=== PATIENT | female | born 1965 | race Caucasian/White ===

== ENCOUNTER → 2020-03-15 | Day surgery (SDC) | payer BC ==
[~2020-03-15] VITALS: Ht 157.4 cm; Wt 66.2 kg
[~2020-03-15] MED LIST: EFFEXOR XR150 M1 PO; PROTONIX40 MG PO; Synthroid,Lev100 MCG PO
[2020-03-15 07:16] VITALS: BP 119/57
[2020-03-15 08:38] VITALS: BP 104/40
[2020-03-15 08:53] VITALS: BP 99/42
[2020-03-15 09:08] VITALS: BP 108/46
== END ==
LOC: SDC 03-11 09:30
PROVIDERS: ATTEND Surgery
DX: R14.0 Abdominal distension (gaseous) (principal); D12.3 Benign neoplasm of transverse colon; K29.50 Unspecified chronic gastritis without bleeding; K29.00 Acute gastritis without bleeding; R13.10 Dysphagia, unspecified; F17.210 Nicotine dependence, cigarettes, uncomplicated; F41.9 Anxiety disorder, unspecified; F32.9 Major depressive disorder, single episode, unspecified; Z79.899 Other long term (current) drug therapy

== ENCOUNTER 2022-11-04 16:00 | Emergency (ER) | payer BC ==
[~2022-11-04] VITALS: Ht 157.4 cm; Wt 62.6 kg
[2022-11-04 16:49] LABS: BASO # 0.1 10*3/uL (0.0-0.1); BASO % 0.6 % (0.0-1.0); EOS # 0.3 10*3/uL (0.0-0.4); EOS % 3.2 % (1.0-4.0); HEMATOCRIT 40.8 % (37.0-47.0); LYMPH # 2.6 10*3/uL (1.3-4.4); LYMPH % 29.4 % (27.0-41.0); MEAN CELL VOLUME 92.1 fl (81.0-99.0); MEAN CORPUSCULAR HGB 32.3 pg (27.0-31.0); MEAN PLATELET VOLUME 8.8 fl (9.6-12.3); MONO # 1.1 10*3/uL (0.1-1.0); MONO % 12.2 % (3.0-9.0); NEUT # 4.8 10*3/uL (2.3-7.9); NEUT % 54.1 % (47.0-73.0); PLATELET COUNT AUTOMATED 389 10*3/uL (130-400); RED BLOOD COUNT 4.43 10*6/uL (4.10-5.10); RED CELL DISTRI WIDTH 12.1 % (0-14.5); WHITE BLOOD COUNT 8.8 10*3/uL (4.8-10.8)
[2022-11-04 17:00] LABS: ACT PARTIAL THROMBO TIME 27.2 SECONDS (20.0-32.1)
[2022-11-04 17:09] LABS: ALKALINE PHOSPHATASE 112 U/L (46-116); BUN 8 mg/dl (9-23); CHLORIDE 107 mmol/L (98-107); POTASSIUM 3.5 mmol/L (3.4-5.1); SGPT/ALT 13 U/L (10-49); TOTAL PROTEIN 6.4 gm/dL (6.0-8.0)
[2022-11-04] MEDS ORDERED: PREDNISONE20 M1 PO (17:23)
== END 2022-11-04 17:58 | disposition home or self-care (01) ==
LOC: ED 16:00
PROVIDERS: Emergency Medicine
DX: M32.9 Systemic lupus erythematosus, unspecified (principal); F32.A Depression, unspecified; F41.9 Anxiety disorder, unspecified; Z98.890 Other specified postprocedural states; Z90.49 Acquired absence of other specified parts of digestive tract